=== PATIENT | male | born 1960 | race Two or more races ===

== ENCOUNTER 2018-03-17 08:11 | Outpatient (CLI) | payer OTHER | END 2018-03-17 09:00 | disposition home or self-care (01) | LOC: NUCLEAR 08:11 | DX: E05.00 Thyrotoxicosis with diffuse goiter without thyrotoxic crisis or storm (principal) | CPT/HCPCS: 78013; A9512 ==

== ENCOUNTER 2018-04-14 08:18 | Outpatient (CLI) | payer OTHER | END 2018-04-14 08:38 | disposition home or self-care (01) | LOC: NUCLEAR 08:18 | DX: E05.90 Thyrotoxicosis, unspecified without thyrotoxic crisis or storm (principal); G45.8 Other transient cerebral ischemic attacks and related syndromes; I73.9 Peripheral vascular disease, unspecified | CPT/HCPCS: 78012; 93923; 93931; A9531 ==

== ENCOUNTER 2018-04-15 08:15 | Outpatient (CLI) | payer OTHER | END 2018-04-15 08:25 | disposition home or self-care (01) | LOC: SONOGRAMA 08:15 → MAMO-SONO 08:45 | DX: M75.102 Unspecified rotator cuff tear or rupture of left shoulder, not specified as traumatic (principal) ==

== ENCOUNTER → 2020-05-18 | Outpatient (CLI) | payer OTHER | END | disposition home or self-care (01) | LOC: NUCLEAR 08:30 | PROVIDERS: ATTEND Specialist | DX: E05.80 Other thyrotoxicosis without thyrotoxic crisis or storm (principal) | CPT/HCPCS: 78013; A9512 ==

== ENCOUNTER 2020-08-29 08:48 | Outpatient (CLI) | payer OTHER | END 2020-08-29 08:51 | disposition home or self-care (01) | LOC: NUCLEAR 08:48 | PROVIDERS: ATTEND Specialist | DX: E03.8 Other specified hypothyroidism (principal) | CPT/HCPCS: 78012; A9513 ==

== ENCOUNTER 2021-07-19 08:36 | Outpatient (CLI) | payer OTHER | END 2021-07-19 08:52 | disposition home or self-care (01) | LOC: SONOGRAMA 08:36 | PROVIDERS: ATTEND Specialist | DX: C73 Malignant neoplasm of thyroid gland (principal); D34 Benign neoplasm of thyroid gland; E03.4 Atrophy of thyroid (acquired); E04.1 Nontoxic single thyroid nodule ==